=== PATIENT | female | born 1960 | race Caucasian/White ===

== ENCOUNTER 2018-04-03 15:31 | Emergency (ER) | payer MEDICAID, OTHER ==
[~2018-04-03] VITALS: Ht 167.6 cm; Wt 50.0 kg
[~2018-04-03 15:31] MED LIST: ALBU17AE26 IH; CYCL-1 PO; OMEP-84 PO; PRED20TA PO
[2018-04-03 15:45] VITALS: BP 101/69
[2018-04-03] MEDS ORDERED: ACET-2119 PO (16:11)
== END 2018-04-03 17:09 | disposition home or self-care (01) ==
LOC: ER 15:31
DX: M76.62 Achilles tendinitis, left leg (principal); M84.375A Stress fracture, left foot, initial encounter for fracture; J44.9 Chronic obstructive pulmonary disease, unspecified; F41.9 Anxiety disorder, unspecified; F32.9 Major depressive disorder, single episode, unspecified; Z59.0 Homelessness; Z56.0 Unemployment, unspecified; Z88.0 Allergy status to penicillin; Z88.6 Allergy status to analgesic agent; X58.XXXA Exposure to other specified factors, initial encounter; Y93.89 Activity, other specified; Y92.89 Other specified places as the place of occurrence of the external cause; Y99.8 Other external cause status
CPT/HCPCS: 73630; 99284

== ENCOUNTER 2023-05-12 13:47 | Emergency (ER) | payer MEDICAID, OTHER ==
[~2023-05-12] VITALS: Ht 167.6 cm; Wt 50.0 kg
[2023-05-12 14:35] VITALS: TEMP 98.8
[2023-05-12 15:14] LABS: BASOPHILS # (AUTO) 0.1 X10'3 (0-0.2); BASOPHILS % (AUTO) 0.6 % (0-1); EOSINOPHILS # (AUTO) 0.1 X10'3 (0-0.9); EOSINOPHILS % (AUTO) 0.3 % (0-6); HEMATOCRIT 42.7 % (35.0-45.0); HEMOGLOBIN 14.3 g/dl (12.0-16.0); LYMPHOCYTES # (AUTO) 1.7 X10'3 (1.1-4.8); LYMPHOCYTES % (AUTO) 10.9 % (21-51); MEAN CORPUSCULAR HEMOGLOBIN 34.3 PG (27.0-31.0); MEAN CORPUSCULAR HGB CONC 33.5 g/dL (33.0-36.5); MEAN CORPUSCULAR VOLUME 102.2 FL (78-98); MEAN PLATELET VOLUME 7.8 FL (7.4-10.4); MONOCYTES # (AUTO) 0.7 X10'3 (0-0.9); MONOCYTES % (AUTO) 4.2 % (2-12); NEUTROPHILS # (AUTO) 13.1 X10'3 (1.8-7.7); PLATELET COUNT 353 X10'3 (140-440); RED BLOOD COUNT 4.18 X10'6 (4.20-5.60); RED CELL DISTRIBUTION WIDTH 15.2 % (11.5-14.5); WHITE BLOOD COUNT 15.6 X10'3 (4.5-11.0)
[2023-05-12 15:28] LABS: ALANINE AMINOTRANSFERASE 28 U/L (12-78); ALBUMIN 3.5 G/DL (3.4-5.0); ALBUMIN/GLOBULIN RATIO 0.9 (1.1-1.5); ALKALINE PHOSPHATASE 116 IU/L (46-116); ANION GAP 10 (8-16); ASPARTATE AMINO TRANSFERASE 19 U/L (10-37); BILIRUBIN,TOTAL 0.2 MG/DL (0.1-1.0); BLOOD UREA NITROGEN 8 MG/DL (7-18); BUN/CREATININE RATIO 12.9 (10.0-20.0); CALCIUM 9.2 MG/DL (8.5-10.1); CHLORIDE 100 MMOL/L (99-107); CREATININE 0.62 MG/DL (0.40-0.90); GLUCOSE 102 MG/DL (70-104); POTASSIUM 4.7 MMOL/L (3.5-5.1); SODIUM 137 MMOL/L (135-145); TOTAL CARBON DIOXIDE 27.5 MMOL/L (24-32); TOTAL PROTEIN 7.2 G/DL (6.4-8.2); eCRCL 75 ML/MIN; eGFR > 90 ML/MIN
[2023-05-12 15:36] LABS: PRO BRAIN NATRIURETIC PEPTIDE 86 PG/ML (0-125)
[2023-05-12] MEDS ORDERED: oxyCODONE/APAP 5-325mg tablet PO ONE (15:40)
[2023-05-12] MEDS ORDERED: CYCL-1 PO (16:14)
[2023-05-12 16:44] VITALS: BP 127/81; PULSE 94; RESP 19; O2SAT 97
== END 2023-05-12 16:46 | disposition home or self-care (01) ==
LOC: ER 13:48
DX: R07.9 Chest pain, unspecified (principal); R05.9 Cough, unspecified; F31.9 Bipolar disorder, unspecified; J44.9 Chronic obstructive pulmonary disease, unspecified; Z88.0 Allergy status to penicillin; Z88.6 Allergy status to analgesic agent
CPT/HCPCS: 36415; 71045; 80053; 83880; 84484; 85025; 93005; 99285

== ENCOUNTER 2023-06-01 11:47 | Inpatient (IN) | payer MEDICAID ==
[~2023-06-01] VITALS: Ht 170.2 cm; Wt 40.1 kg
[2023-06-01] MEDS ORDERED: LORazepam 1 MG tablet PO ONE (12:30)
[2023-06-01 13:34] LABS: ALANINE AMINOTRANSFERASE 52 U/L (12-78); ALBUMIN 3.4 G/DL (3.4-5.0); ALBUMIN/GLOBULIN RATIO 0.8 (1.1-1.5); ALKALINE PHOSPHATASE 215 IU/L (46-116); ANION GAP 10 (8-16); ASPARTATE AMINO TRANSFERASE 26 U/L (10-37); BILIRUBIN,TOTAL 1.1 MG/DL (0.1-1.0); BLOOD UREA NITROGEN 10 MG/DL (7-18); CALCIUM 9.1 MG/DL (8.5-10.1); CHLORIDE 96 MMOL/L (99-107); CREATININE 0.83 MG/DL (0.40-0.90); GLUCOSE 202 MG/DL (70-104); SODIUM 133 MMOL/L (135-145); TOTAL CARBON DIOXIDE 27.1 MMOL/L (24-32); TOTAL PROTEIN 7.8 G/DL (6.4-8.2); eCRCL 43 ML/MIN; eGFR 70 ML/MIN
[2023-06-01 13:43] LABS: PRO BRAIN NATRIURETIC PEPTIDE 315 PG/ML (0-125)
[2023-06-01 14:04] LABS: BASOPHILS # (AUTO) 0.1 X10'3 (0-0.2); BASOPHILS % (AUTO) 0.2 % (0-1); EOSINOPHILS % (AUTO) 0 % (0-6); HEMATOCRIT 44.6 % (35.0-45.0); HEMOGLOBIN 14.6 g/dl (12.0-16.0); LYMPHOCYTES # (AUTO) 0.4 X10'3 (1.1-4.8); LYMPHOCYTES % (AUTO) 1.5 % (21-51); MEAN CORPUSCULAR HEMOGLOBIN 34.9 PG (27.0-31.0); MEAN CORPUSCULAR HGB CONC 32.8 g/dL (33.0-36.5); MEAN CORPUSCULAR VOLUME 106.4 FL (78-98); MEAN PLATELET VOLUME 8.3 FL (7.4-10.4); MONOCYTES # (AUTO) 1.1 X10'3 (0-0.9); MONOCYTES % (AUTO) 4.2 % (2-12); NEUTROPHILS # (AUTO) 24.8 X10'3 (1.8-7.7); NEUTROPHILS % (AUTO) 94.1 % (42-75); PLATELET COUNT 304 X10'3 (140-440); RED BLOOD COUNT 4.19 X10'6 (4.20-5.60)
[2023-06-01 14:08] LABS: WHITE BLOOD COUNT 26.4 X10'3 (4.5-11.0)
[2023-06-01] MEDS ORDERED: HYDROcodone/acetaminophen 5mg/325mg tablet PO ONE (14:25)
[2023-06-01 14:51] LABS: TOTAL CELLS COUNTED 100
[2023-06-01 14:52] LABS: GIANT PLATELET FEW; PLATELET ESTIMATE NORMAL
[2023-06-01] MEDS ORDERED: potassium Cl 40MEQ/1/2NS 520ml 520 ML IV PRN (16:00)
[2023-06-01] MEDS ORDERED: magnesium Cl slow-release 64mg tablet PO PRN (16:00)
[2023-06-01] MEDS ORDERED: magnesium 2GM in 50ml NS 50 ML IV PRN (16:00)
[2023-06-01] MEDS ORDERED: magnesium 4gm in 100ml NS 100 ML IV PRN (16:00)
[2023-06-01] MEDS ORDERED: mag hydrox/Alum hydrox/simeth 30ml oral suspension PO PRN (16:00)
[2023-06-01] MEDS ORDERED: magnesium hydroxide 30ml (MOM) UD suspension PO PRN (16:00)
[2023-06-01] MEDS ORDERED: potassium Cl 20 mEq SR tablet PO PRN (16:00)
[2023-06-01] MEDS ORDERED: acetaminophen 325mg tablet PO PRN (16:00)
[2023-06-01] MEDS ORDERED: morphine 2 MG/ML inj. syringe IV PRN (16:00)
[2023-06-01] MEDS ORDERED: ondansetron/PF 4mg/2ml inj IV PRN (16:00)
[2023-06-01] MEDS ORDERED: CefTRIAXone/D5W-Rocephin 1gm 50 ML IV SCH (16:00)
[2023-06-01] MEDS ORDERED: heparin 25,000 UNIT/250ml bag 250 ML IV PRN (17:10)
[2023-06-01] MEDS ORDERED: heparin 10,000 units/1 ML INJ IV ONE ×3 (17:10→18:50)
[2023-06-01] MEDS ORDERED: metoprolol tartrate 1mg/ml inj IV ONE (17:10)
[2023-06-01 18:03] LABS: CHOL/HDL RATIO 1.7 (0.00-4.99); CHOLESTEROL 170 MG/DL (0-200); HDL CHOLESTEROL 101 MG/DL (35-60); LDL CHOLESTEROL 56 MG/DL (50-100); MAGNESIUM 1.7 MG/DL (1.5-2.4); POTASSIUM 4.9 MMOL/L (3.5-5.1); TRIGLYCERIDES 51 MG/DL (20-135)
[2023-06-01] MEDS ORDERED: aspirin 325mg tablet PO ONE (18:05)
[2023-06-01] MEDS: nicotine 21mg patch - 24 hr TD SCH (18:20)
[2023-06-01] MEDS ORDERED: LORazepam 2 mg/ml vial IV ONE (18:25)
[2023-06-01 18:42] LABS: APTT 27 SECONDS (22-32); INR 1.1 INR; PROTHROMBIN TIME 11.4 SECONDS (9.0-12.0)
[2023-06-01] MEDS: HYDROcodone/acetaminophen 10/325mg tab PO PRN (18:51)
[2023-06-01] MEDS: heparin 25,000 UNIT/250ml bag 250 ML IV PRN (18:59)
[2023-06-01 19:36] LABS: BASOPHILS # (AUTO) 0.1 X10'3 (0-0.2); BASOPHILS % (AUTO) 0.2 % (0-1); EOSINOPHILS % (AUTO) 0 % (0-6); HEMATOCRIT 43.4 % (35.0-45.0); HEMOGLOBIN 14.6 g/dl (12.0-16.0); LYMPHOCYTES # (AUTO) 0.6 X10'3 (1.1-4.8); LYMPHOCYTES % (AUTO) 1.8 % (21-51); MEAN CORPUSCULAR HEMOGLOBIN 35.6 PG (27.0-31.0); MEAN CORPUSCULAR HGB CONC 33.7 g/dL (33.0-36.5); MEAN CORPUSCULAR VOLUME 105.4 FL (78-98); MEAN PLATELET VOLUME 8.1 FL (7.4-10.4); MONOCYTES # (AUTO) 1.2 X10'3 (0-0.9); MONOCYTES % (AUTO) 3.7 % (2-12); NEUTROPHILS # (AUTO) 30.8 X10'3 (1.8-7.7); NEUTROPHILS % (AUTO) 94.3 % (42-75); PLATELET COUNT 268 X10'3 (140-440); RED BLOOD COUNT 4.12 X10'6 (4.20-5.60); RED CELL DISTRIBUTION WIDTH 15.6 % (11.5-14.5)
[2023-06-01 19:43] LABS: WHITE BLOOD COUNT 32.7 X10'3 (4.5-11.0)
[2023-06-01] MEDS: K and/or MAG REPLACEMENT MC SCH (20:00)
[2023-06-01] MEDS: carVEDilol 3.125mg tablet PO SCH (20:00)
[2023-06-01] MEDS: docusate sod 100mg capsule PO SCH (20:00)
[2023-06-01] MEDS ORDERED: enoxaparin 40mg/0.4ml syringe SQ SCH (20:00)
[2023-06-02] VITALS (13 sets, daily range): BP systolic 84–111; BP diastolic 50–68; PULSE 51–101; RESP 12–21; TEMP 97.1–98; O2SAT 94–100
[2023-06-02] MEDS: HYDROcodone/acetaminophen 10/325mg tab PO PRN ×5 (00:38→21:56)
[2023-06-02] MEDS: hydrOXYzine 25 MG tablet PO PRN ×4 (00:38→19:51)
[2023-06-02] MEDS ORDERED: carVEDilol 3.125mg tablet PO ONE (00:55)
[2023-06-02] MEDS: normal saline 1000ml 1,000 ML IV SCH ×3 (01:23→21:00)
[2023-06-02] MEDS: nitroGLYCERIN 0.4mg SUBLingual tab SL PRN ×3 (01:23→02:20)
[2023-06-02 01:46] LABS: NEUTROPHILS # (AUTO) 19.7 X10'3 (1.8-7.7); RED BLOOD COUNT 3.94 X10'6 (4.20-5.60); RED CELL DISTRIBUTION WIDTH 15.8 % (11.5-14.5)
[2023-06-02 01:48] LABS: BASOPHILS % (AUTO) 0.2 % (0-1); EOSINOPHILS % (AUTO) 0 % (0-6); HEMATOCRIT 42.3 % (35.0-45.0); LYMPHOCYTES # (AUTO) 0.6 X10'3 (1.1-4.8); LYMPHOCYTES % (AUTO) 2.7 % (21-51); MEAN CORPUSCULAR HEMOGLOBIN 35.6 PG (27.0-31.0); MEAN CORPUSCULAR HGB CONC 33.2 g/dL (33.0-36.5); MEAN CORPUSCULAR VOLUME 107.2 FL (78-98); MONOCYTES # (AUTO) 1.1 X10'3 (0-0.9); MONOCYTES % (AUTO) 5.2 % (2-12); NEUTROPHILS % (AUTO) 91.9 % (42-75); PLATELET COUNT 156 X10'3 (140-440); WHITE BLOOD COUNT 21.4 X10'3 (4.5-11.0)
[2023-06-02 02:02] LABS: ALANINE AMINOTRANSFERASE 38 U/L (12-78); ALBUMIN/GLOBULIN RATIO 0.7 (1.1-1.5); ALKALINE PHOSPHATASE 168 IU/L (46-116); ANION GAP 6 (8-16); ASPARTATE AMINO TRANSFERASE 34 U/L (10-37); BLOOD UREA NITROGEN 22 MG/DL (7-18); BUN/CREATININE RATIO 21.6 (10.0-20.0); CHLORIDE 97 MMOL/L (99-107); CREATININE 1.02 MG/DL (0.40-0.90); GLUCOSE 124 MG/DL (70-104); MAGNESIUM 1.9 MG/DL (1.5-2.4); POTASSIUM 4.4 MMOL/L (3.5-5.1); SODIUM 131 MMOL/L (135-145); TOTAL CARBON DIOXIDE 27.9 MMOL/L (24-32); TOTAL PROTEIN 7.2 G/DL (6.4-8.2); eCRCL 37 ML/MIN; eGFR 55 ML/MIN
[2023-06-02] MEDS: heparin 10,000 units/1 ML INJ IV PRN ×2 (02:22→16:36)
[2023-06-02] MEDS: pantoprazole 40mg Tablet.DR PO SCH (06:56)
[2023-06-02] MEDS: K and/or MAG REPLACEMENT MC SCH ×2 (08:00→20:00)
[2023-06-02] MEDS: nicotine 21mg patch - 24 hr TD SCH (08:00)
[2023-06-02] MEDS ORDERED: atorvastatin 20mg tablet PO SCH (08:00)
[2023-06-02] MEDS: atorvastatin 20mg tablet PO SCH (08:07)
[2023-06-02] MEDS: aspirin 81mg, enteric-coated 1 TAB TABLET.DR PO SCH (08:08)
[2023-06-02] MEDS: docusate sod 100mg capsule PO SCH ×2 (08:08→20:00)
[2023-06-02] MEDS ORDERED: normal saline 1000ml 1,000 ML IV ONE (09:45)
[2023-06-02] MEDS: carVEDilol 3.125mg tablet PO SCH ×2 (10:18→20:00)
[2023-06-02 13:27] LABS: BILIRUBIN,URINE NEGATIVE (Neg); CLARITY,URINE SLIGHTLY CLOUDY (Clear); COLOR,URINE AMBER (Yellow); GLUCOSE, URINE NEGATIVE (Neg); KETONES,URINE NEGATIVE (Neg); LEUKOCYTE ESTERASE ,URINE NEGATIVE (Neg); OCCULT BLOOD,URINE NEGATIVE (Neg); PH,URINE 5.5 (4.8-8.0); PROTEIN,URINE TRACE mg/dl (Neg); UROBILINOGEN,URINE 0.2 E.U/dL (0.2-1.0)
[2023-06-02 13:31] LABS: UA COLLECTION TYPE CLN CATCH MIDSTREAM
[2023-06-02 13:35] LABS: URINE AMPHETAMINE SCREEN NEGATIVE (Neg); URINE BARBITUATE SCREEN NEGATIVE (Neg); URINE BENZODIAZEPINES SCREEN NEGATIVE (Neg); URINE CANNABINOID SCREEN NEGATIVE (Neg); URINE COCAINE SCREEN NEGATIVE (Neg); URINE METHADONE SCREEN NEGATIVE (Neg); URINE OPIATE SCREEN POSITIVE (Neg); URINE PHENCYCLIDINE SCREEN NEGATIVE (Neg)
[2023-06-02 13:37] LABS: NITRITES, URINE NEGATIVE (Neg)
[2023-06-02 14:24] LABS: HYALINE CASTS >30 /LPF (NEGATIVE); MUCUS STRANDS MANY /LPF (Neg); SQUAMOUS EPITHELIAL CELL,UR MANY /LPF (FEW)
[2023-06-02 14:25] LABS: BACTERIA,URINE FEW /HPF (Neg); TRANSITIONAL EPI CELLS,URINE FEW /HPF
[2023-06-02] MEDS ORDERED: CLON-527 PO (16:32)
[2023-06-02] MEDS: CefTRIAXone/D5W-Rocephin 1gm 50 ML IV SCH (17:08)
[2023-06-02] MEDS ORDERED: regadenoson 0.4mg/5ml syringe IV PRN (18:00)
[2023-06-02] MEDS ORDERED: aminophylline 250mg/10ml inj. IV PRN (18:00)
[2023-06-02] MEDS ORDERED: nitroGLYCERIN 0.4mg SUBLingual tab SL PRN (18:00)
[2023-06-02] MEDS: lactose-reduced food (Ensure Enlive) - 237ml bottle PO SCH (18:00)
[2023-06-02] MEDS ORDERED: metoprolol tartrate 1mg/ml inj IV PRN (18:00)
[2023-06-03] VITALS (16 sets, daily range): BP systolic 83–139; BP diastolic 51–77; PULSE 11–113; RESP 14–28; TEMP 97.2–98; O2SAT 92–100
[2023-06-03] MEDS: normal saline 1000ml 1,000 ML IV SCH ×2 (00:28→10:31)
[2023-06-03 01:16] LABS: BILIRUBIN,URINE NEGATIVE (Neg); CLARITY,URINE CLEAR (Clear); GLUCOSE, URINE NEGATIVE (Neg); KETONES,URINE TRACE mg/dl (Neg); LEUKOCYTE ESTERASE ,URINE NEGATIVE (Neg); NITRITES, URINE NEGATIVE (Neg); OCCULT BLOOD,URINE TRACE-INTACT (Neg); PROTEIN,URINE TRACE mg/dl (Neg); UROBILINOGEN,URINE 0.2 E.U/dL (0.2-1.0)
[2023-06-03 01:18] LABS: COLOR,URINE DARK YELLOW (Yellow)
[2023-06-03 01:25] LABS: UA COLLECTION TYPE OTHER
[2023-06-03 01:30] LABS: MUCUS STRANDS MANY /LPF (Neg); SQUAMOUS EPITHELIAL CELL,UR MANY /LPF (FEW); TRANSITIONAL EPI CELLS,URINE FEW /HPF; WBC,URINE 0-4 /HPF (0-4)
[2023-06-03 01:32] LABS: BACTERIA,URINE FEW /HPF (Neg)
[2023-06-03 01:39] LABS: FINE GRANULAR CAST 0-3 /LPF (NEGATIVE); HYALINE CASTS 0-3 /LPF (NEGATIVE)
[2023-06-03] MEDS: HYDROcodone/acetaminophen 10/325mg tab PO PRN ×2 (02:04→05:55)
[2023-06-03] MEDS: hydrOXYzine 25 MG tablet PO PRN ×2 (02:04→07:45)
[2023-06-03] MEDS: heparin 25,000 UNIT/250ml bag 250 ML IV PRN (05:47)
[2023-06-03] MEDS: pantoprazole 40mg Tablet.DR PO SCH (07:44)
[2023-06-03 07:52] LABS: BASOPHILS % (AUTO) 0.2 % (0-1); EOSINOPHILS # (AUTO) 0.1 X10'3 (0-0.9); EOSINOPHILS % (AUTO) 0.8 % (0-6); HEMATOCRIT 37.9 % (35.0-45.0); HEMOGLOBIN 12.5 g/dl (12.0-16.0); LYMPHOCYTES # (AUTO) 0.6 X10'3 (1.1-4.8); LYMPHOCYTES % (AUTO) 6.1 % (21-51); MEAN CORPUSCULAR HEMOGLOBIN 35.6 PG (27.0-31.0); MEAN CORPUSCULAR HGB CONC 33.1 g/dL (33.0-36.5); MEAN CORPUSCULAR VOLUME 107.8 FL (78-98); MEAN PLATELET VOLUME 8.8 FL (7.4-10.4); MONOCYTES # (AUTO) 0.5 X10'3 (0-0.9); NEUTROPHILS # (AUTO) 8.3 X10'3 (1.8-7.7); NEUTROPHILS % (AUTO) 87.9 % (42-75); PLATELET COUNT 161 X10'3 (140-440); RED BLOOD COUNT 3.51 X10'6 (4.20-5.60); RED CELL DISTRIBUTION WIDTH 15.5 % (11.5-14.5); WHITE BLOOD COUNT 9.4 X10'3 (4.5-11.0)
[2023-06-03] MEDS: K and/or MAG REPLACEMENT MC SCH ×2 (08:00→20:00)
[2023-06-03] MEDS: lactose-reduced food (Ensure Enlive) - 237ml bottle PO SCH ×3 (08:00→18:00)
[2023-06-03] MEDS: nicotine 21mg patch - 24 hr TD SCH (08:00)
[2023-06-03 08:14] LABS: ALANINE AMINOTRANSFERASE 33 U/L (12-78); ALBUMIN 2.5 G/DL (3.4-5.0); ALBUMIN/GLOBULIN RATIO 0.6 (1.1-1.5); ALKALINE PHOSPHATASE 126 IU/L (46-116); ANION GAP 6 (8-16); ASPARTATE AMINO TRANSFERASE 28 U/L (10-37); BILIRUBIN,TOTAL 0.5 MG/DL (0.1-1.0); BLOOD UREA NITROGEN 18 MG/DL (7-18); BUN/CREATININE RATIO 23.4 (10.0-20.0); CALCIUM 8.4 MG/DL (8.5-10.1); CHLORIDE 103 MMOL/L (99-107); CREATININE 0.77 MG/DL (0.40-0.90); GLUCOSE 78 MG/DL (70-104); MAGNESIUM 1.9 MG/DL (1.5-2.4); POTASSIUM 3.8 MMOL/L (3.5-5.1); SODIUM 135 MMOL/L (135-145); TOTAL CARBON DIOXIDE 25.8 MMOL/L (24-32); TOTAL PROTEIN 6.4 G/DL (6.4-8.2); eCRCL 49 ML/MIN; eGFR 76 ML/MIN
[2023-06-03] MEDS: heparin 10,000 units/1 ML INJ IV PRN (08:31)
[2023-06-03] MEDS: clonazePAM 1mg tablet PO PRN ×2 (10:27→20:22)
[2023-06-03] MEDS: hydrocortisone 1% cream 28gm TP SCH ×2 (11:00→20:22)
[2023-06-03] MEDS: carVEDilol 3.125mg tablet PO SCH ×2 (13:00→20:00)
[2023-06-03] MEDS: docusate sod 100mg capsule PO SCH ×2 (15:26→20:00)
[2023-06-03] MEDS: aspirin 81mg, enteric-coated 1 TAB TABLET.DR PO SCH (15:27)
[2023-06-03] MEDS: atorvastatin 20mg tablet PO SCH (15:27)
[2023-06-03] MEDS: HYDROcodone/acetaminophen 5mg/325mg tablet PO PRN (17:17)
[2023-06-03] MEDS: CefTRIAXone/D5W-Rocephin 1gm 50 ML IV SCH (17:17)
[2023-06-03] MEDS ORDERED: enoxaparin 40mg/0.4ml syringe SUBCUT SCH (20:00)
[2023-06-04] VITALS (22 sets, daily range): BP systolic 97–114; BP diastolic 62–86; PULSE 84–107; RESP 16–28; TEMP 97.4–98.5; O2SAT 92–99
[2023-06-04] MEDS: normal saline 1000ml 1,000 ML IV SCH (01:19)
[2023-06-04] MEDS: HYDROcodone/acetaminophen 10/325mg tab PO PRN (05:53)
[2023-06-04 07:03] LABS: ALANINE AMINOTRANSFERASE 27 U/L (12-78); ALBUMIN/GLOBULIN RATIO 0.6 (1.1-1.5); ALKALINE PHOSPHATASE 98 IU/L (46-116); ANION GAP 10 (8-16); ASPARTATE AMINO TRANSFERASE 26 U/L (10-37); BILIRUBIN,TOTAL 0.5 MG/DL (0.1-1.0); BLOOD UREA NITROGEN 10 MG/DL (7-18); BUN/CREATININE RATIO 16.9 (10.0-20.0); CALCIUM 7.9 MG/DL (8.5-10.1); CHLORIDE 104 MMOL/L (99-107); CREATININE 0.59 MG/DL (0.40-0.90); GLUCOSE 92 MG/DL (70-104); MAGNESIUM 1.5 MG/DL (1.5-2.4); POTASSIUM 3.3 MMOL/L (3.5-5.1); SODIUM 137 MMOL/L (135-145); TOTAL CARBON DIOXIDE 23.2 MMOL/L (24-32); TOTAL PROTEIN 5.5 G/DL (6.4-8.2); eCRCL 63 ML/MIN; eGFR > 90 ML/MIN
[2023-06-04 07:09] LABS: BASOPHILS % (AUTO) 0.3 % (0-1); EOSINOPHILS # (AUTO) 0.1 X10'3 (0-0.9); EOSINOPHILS % (AUTO) 0.9 % (0-6); HEMATOCRIT 32.1 % (35.0-45.0); HEMOGLOBIN 10.9 g/dl (12.0-16.0); LYMPHOCYTES # (AUTO) 0.6 X10'3 (1.1-4.8); LYMPHOCYTES % (AUTO) 10.2 % (21-51); MEAN CORPUSCULAR HEMOGLOBIN 36.3 PG (27.0-31.0); MEAN CORPUSCULAR HGB CONC 34.1 g/dL (33.0-36.5); MEAN CORPUSCULAR VOLUME 106.6 FL (78-98); MEAN PLATELET VOLUME 8.3 FL (7.4-10.4); MONOCYTES # (AUTO) 0.7 X10'3 (0-0.9); MONOCYTES % (AUTO) 11.8 % (2-12); NEUTROPHILS # (AUTO) 4.4 X10'3 (1.8-7.7); NEUTROPHILS % (AUTO) 76.8 % (42-75); PLATELET COUNT 150 X10'3 (140-440); RED BLOOD COUNT 3.01 X10'6 (4.20-5.60); RED CELL DISTRIBUTION WIDTH 15.6 % (11.5-14.5); WHITE BLOOD COUNT 5.7 X10'3 (4.5-11.0)
[2023-06-04] MEDS: pantoprazole 40mg Tablet.DR PO SCH (07:47)
[2023-06-04] MEDS: clonazePAM 1mg tablet PO PRN ×2 (07:47→21:02)
[2023-06-04] MEDS: carVEDilol 3.125mg tablet PO SCH ×2 (07:48→20:00)
[2023-06-04] MEDS: potassium Cl 20 mEq SR tablet PO PRN ×2 (07:49→13:43)
[2023-06-04] MEDS: hydrocortisone 1% cream 28gm TP SCH ×2 (07:50→20:45)
[2023-06-04] MEDS: K and/or MAG REPLACEMENT MC SCH ×2 (07:54→20:00)
[2023-06-04] MEDS: lactose-reduced food (Ensure Enlive) - 237ml bottle PO SCH ×3 (08:00→18:00)
[2023-06-04] MEDS: nicotine 21mg patch - 24 hr TD SCH (08:00)
[2023-06-04] MEDS ORDERED: midazolam 1 mg/ML 2ml injection ONE (09:35)
[2023-06-04] MEDS ORDERED: LIDOcaine 1% (10mg/ml) 2ml vial ONE (09:35)
[2023-06-04] MEDS ORDERED: fentaNYL/PF 50MCG/1 ML 2ML syringe ONE (09:35)
[2023-06-04] MEDS ORDERED: verapamil 2.5 mg/ml inj IV ONE (09:35)
[2023-06-04] MEDS ORDERED: nitroGLYCERIN 500mcg/5mL D5W 5 ML IV ONE (09:36)
[2023-06-04] MEDS ORDERED: heparin 1,000unit/ml 10ml vial 10 ML ONE (09:36)
[2023-06-04] MEDS ORDERED: iohexol 350MG/ML 100ml bottle IV ONE (09:36)
[2023-06-04] MEDS ORDERED: iohexol 350 MG/ML 50ML vial IV ONE (09:38)
[2023-06-04] MEDS ORDERED: LIDOcaine 1% (10mg/ml)w/preservative inj. 20ml MDV ONE (10:11)
[2023-06-04] MEDS ORDERED: normal saline 1000ml 1,000 ML IV SCH (12:00)
[2023-06-04] MEDS: losartan 25mg tablet PO SCH (12:32)
[2023-06-04] MEDS: atorvastatin 20mg tablet PO SCH (12:33)
[2023-06-04] MEDS: aspirin 81mg, enteric-coated 1 TAB TABLET.DR PO SCH (12:33)
[2023-06-04] MEDS: docusate sod 100mg capsule PO SCH ×2 (12:37→20:44)
[2023-06-04] MEDS ORDERED: spironolactone 25 MG tablet PO SCH (13:00)
[2023-06-04] MEDS: HYDROcodone/acetaminophen 5mg/325mg tablet PO PRN ×2 (13:42→17:25)
[2023-06-04] MEDS ORDERED: methylPREDNISolone sod succ 125mg/2ml vial IV ONE (14:35)
[2023-06-04] MEDS ORDERED: ipratropium/albuterol 3ml nebule NEB PRN (14:55)
[2023-06-04] MEDS: ipratropium/albuterol 3ml nebule NEB SCH ×3 (15:00→22:56)
[2023-06-04] MEDS: CefTRIAXone/D5W-Rocephin 1gm 50 ML IV SCH (17:24)
[2023-06-05] VITALS (8 sets, daily range): BP systolic 101–113; BP diastolic 76; PULSE 75–89; RESP 17–22; TEMP 97.1; O2SAT 97–100
[2023-06-05] MEDS: HYDROcodone/acetaminophen 5mg/325mg tablet PO PRN ×2 (01:43→08:42)
[2023-06-05] MEDS: ipratropium/albuterol 3ml nebule NEB SCH ×2 (03:21→07:42)
[2023-06-05 06:28] LABS: BASOPHILS % (AUTO) 0.2 % (0-1); EOSINOPHILS % (AUTO) 0 % (0-6); HEMATOCRIT 33.6 % (35.0-45.0); HEMOGLOBIN 11.4 g/dl (12.0-16.0); LYMPHOCYTES # (AUTO) 0.3 X10'3 (1.1-4.8); LYMPHOCYTES % (AUTO) 6.2 % (21-51); MEAN CORPUSCULAR HEMOGLOBIN 36.1 PG (27.0-31.0); MEAN CORPUSCULAR HGB CONC 33.8 g/dL (33.0-36.5); MEAN CORPUSCULAR VOLUME 106.7 FL (78-98); MEAN PLATELET VOLUME 8.3 FL (7.4-10.4); MONOCYTES # (AUTO) 0.2 X10'3 (0-0.9); MONOCYTES % (AUTO) 4.7 % (2-12); NEUTROPHILS # (AUTO) 3.9 X10'3 (1.8-7.7); NEUTROPHILS % (AUTO) 88.9 % (42-75); PLATELET COUNT 193 X10'3 (140-440); RED BLOOD COUNT 3.15 X10'6 (4.20-5.60); RED CELL DISTRIBUTION WIDTH 15.7 % (11.5-14.5); WHITE BLOOD COUNT 4.4 X10'3 (4.5-11.0)
[2023-06-05 07:01] LABS: ALANINE AMINOTRANSFERASE 34 U/L (12-78); ALBUMIN 2.1 G/DL (3.4-5.0); ALBUMIN/GLOBULIN RATIO 0.6 (1.1-1.5); ALKALINE PHOSPHATASE 95 IU/L (46-116); ANION GAP 6 (8-16); ASPARTATE AMINO TRANSFERASE 25 U/L (10-37); BILIRUBIN,TOTAL 0.2 MG/DL (0.1-1.0); BLOOD UREA NITROGEN 9 MG/DL (7-18); BUN/CREATININE RATIO 14.1 (10.0-20.0); CALCIUM 8.3 MG/DL (8.5-10.1); CHLORIDE 105 MMOL/L (99-107); CREATININE 0.64 MG/DL (0.40-0.90); GLUCOSE 155 MG/DL (70-104); MAGNESIUM 1.8 MG/DL (1.5-2.4); POTASSIUM 4.2 MMOL/L (3.5-5.1); PRO BRAIN NATRIURETIC PEPTIDE 10339 PG/ML (0-125); SODIUM 136 MMOL/L (135-145); TOTAL CARBON DIOXIDE 25.4 MMOL/L (24-32); TOTAL PROTEIN 5.8 G/DL (6.4-8.2); eCRCL 58 ML/MIN; eGFR > 90 ML/MIN
[2023-06-05] MEDS: nicotine 21mg patch - 24 hr TD SCH (08:00)
[2023-06-05] MEDS: docusate sod 100mg capsule PO SCH (08:00)
[2023-06-05] MEDS: K and/or MAG REPLACEMENT MC SCH (08:00)
[2023-06-05] MEDS: hydrocortisone 1% cream 28gm TP SCH (08:35)
[2023-06-05] MEDS: pantoprazole 40mg Tablet.DR PO SCH (08:35)
[2023-06-05] MEDS: losartan 25mg tablet PO SCH (08:35)
[2023-06-05] MEDS: carVEDilol 3.125mg tablet PO SCH (08:36)
[2023-06-05] MEDS: atorvastatin 20mg tablet PO SCH (08:36)
[2023-06-05] MEDS: aspirin 81mg, enteric-coated 1 TAB TABLET.DR PO SCH (08:36)
[2023-06-05] MEDS: lactose-reduced food (Ensure Enlive) - 237ml bottle PO SCH (08:37)
[2023-06-05] MEDS: clonazePAM 1mg tablet PO PRN (08:41)
[2023-06-07] MEDS ORDERED: FURO-150 PO (10:44)
[2023-06-07] MEDS ORDERED: IPRA3AMP9 NEB (10:44)
[2023-06-07] MEDS ORDERED: POTA-206 PO (10:44)
[2023-06-07] MEDS ORDERED: PANT40SU2 PO (10:52)
[2023-06-07] MEDS ORDERED: PRED20TA PO (10:52)
[2023-06-07] MEDS ORDERED: CARV3.12 PO (13:24)
[2023-06-07] MEDS ORDERED: LISI2.5T14 PO (13:24)
== END 2023-06-05 10:40 | disposition left against medical advice (07) | DRG 190 ==
LOC: ER 11:48 → ED HOLD 16:07 → PCU 3S 23:55
PROVIDERS: ADMIT Internal Medicine; ATTEND Internal Medicine
PROC: 4A02XM4 Measurement of Cardiac Total Activity, External Approach (ICD-10-PCS; 2023-06-03)
PROC: 3E073KZ Introduction of Other Diagnostic Substance into Coronary Artery, Percutaneous Approach (ICD-10-PCS; 2023-06-03)
PROC: 4A023N7 Measurement of Cardiac Sampling and Pressure, Left Heart, Percutaneous Approach (ICD-10-PCS; principal; 2023-06-04)
PROC: B2111ZZ Fluoroscopy of Multiple Coronary Arteries using Low Osmolar Contrast (ICD-10-PCS; 2023-06-04)
PROC: B2151ZZ Fluoroscopy of Left Heart using Low Osmolar Contrast (ICD-10-PCS; 2023-06-04)
DX: I21.4 Non-ST elevation (NSTEMI) myocardial infarction (principal); E87.1 Hypo-osmolality and hyponatremia; E86.0 Dehydration; J44.1 Chronic obstructive pulmonary disease with (acute) exacerbation; F32.A Depression, unspecified; F41.9 Anxiety disorder, unspecified; G89.29 Other chronic pain; K21.9 Gastro-esophageal reflux disease without esophagitis; D72.829 Elevated white blood cell count, unspecified; I10 Essential (primary) hypertension; I20.0 Unstable angina; Z53.21 Procedure and treatment not carried out due to patient leaving prior to being seen by health care provider; M54.50 Low back pain, unspecified; G62.9 Polyneuropathy, unspecified; F17.200 Nicotine dependence, unspecified, uncomplicated; Z90.710 Acquired absence of both cervix and uterus; Z90.49 Acquired absence of other specified parts of digestive tract; Z79.899 Other long term (current) drug therapy; Z59.00 Homelessness unspecified
CPT/HCPCS: 36415; 71045; 71250; 76937; 78452; 80053; 80061; 80305; 81001; 82103; 83036; 83605; 83735; 83880; 84132; 84484; 85007; 85025; 85610; 85730; 87040; 87081; 93005; 93017; 93306; 93458; 93925; 94640; 94760; 99152; 99153; 99285; A4620; A6258; A9500; C1725; C1894; G0378; J0696; J1644; J1650; J2060; J2250; J2405; J2785; J2930; J3010; J3490; J7030; Q0177; Q9967

== ENCOUNTER 2023-06-10 23:14 | Emergency (ER) | payer MEDICAID ==
[~2023-06-10] VITALS: Ht 167.6 cm; Wt 112.0 kg
[~2023-06-10 23:14] MED LIST changes: -ALBU17AE26 IH; +CARV3.12 PO; +CLON-527 PO; -CYCL-1 PO; +FURO-150 PO; +IPRA3AMP9 NEB; +LISI2.5T14 PO; +PANT40SU2 PO; +POTA-206 PO
[2023-06-10 23:42] LABS: WHITE BLOOD COUNT 6.1 X10'3 (4.5-11.0)
[2023-06-10 23:47] VITALS: TEMP 98
[2023-06-10 23:47] LABS: BASOPHILS % (AUTO) 0.4 % (0-1); EOSINOPHILS % (AUTO) 0.2 % (0-6); HEMATOCRIT 45.4 % (35.0-45.0); HEMOGLOBIN 14.6 g/dl (12.0-16.0); LYMPHOCYTES # (AUTO) 0.6 X10'3 (1.1-4.8); LYMPHOCYTES % (AUTO) 9.4 % (21-51); MEAN CORPUSCULAR HEMOGLOBIN 34.9 PG (27.0-31.0); MEAN CORPUSCULAR HGB CONC 32.1 g/dL (33.0-36.5); MEAN CORPUSCULAR VOLUME 108.7 FL (78-98); MEAN PLATELET VOLUME 7.4 FL (7.4-10.4); MONOCYTES # (AUTO) 0.1 X10'3 (0-0.9); MONOCYTES % (AUTO) 1.1 % (2-12); NEUTROPHILS # (AUTO) 5.4 X10'3 (1.8-7.7); NEUTROPHILS % (AUTO) 88.9 % (42-75); PLATELET COUNT 542 X10'3 (140-440); RED BLOOD COUNT 4.18 X10'6 (4.20-5.60); RED CELL DISTRIBUTION WIDTH 15.8 % (11.5-14.5)
[2023-06-10 23:55] LABS: ALANINE AMINOTRANSFERASE 63 U/L (12-78); ALBUMIN 3.3 G/DL (3.4-5.0); ALBUMIN/GLOBULIN RATIO 0.7 (1.1-1.5); ALKALINE PHOSPHATASE 109 IU/L (46-116); ANION GAP 10 (8-16); ASPARTATE AMINO TRANSFERASE 37 U/L (10-37); BILIRUBIN,TOTAL 0.2 MG/DL (0.1-1.0); BLOOD UREA NITROGEN 6 MG/DL (7-18); BUN/CREATININE RATIO 7.3 (10.0-20.0); CALCIUM 8.9 MG/DL (8.5-10.1); CHLORIDE 104 MMOL/L (99-107); CREATININE 0.82 MG/DL (0.40-0.90); ETHANOL 246 MG/DL (<10); GLUCOSE 122 MG/DL (70-104); POTASSIUM 4.9 MMOL/L (3.5-5.1); SALICYLATE 1.7 MG/DL (4.0-20.0); SODIUM 141 MMOL/L (135-145); TOTAL CARBON DIOXIDE 26.6 MMOL/L (24-32); TOTAL PROTEIN 8.1 G/DL (6.4-8.2); eGFR 71 ML/MIN
[2023-06-11 00:12] LABS: ACETAMINOPHEN < 2.0 UG/ML (10-30)
[2023-06-11] MEDS: thiamine 100mg/ml 2ml inj. IM ONE ×2 (00:47→00:51)
[2023-06-11 02:41] LABS: URINE AMPHETAMINE SCREEN NEGATIVE (Neg); URINE BARBITUATE SCREEN NEGATIVE (Neg); URINE BENZODIAZEPINES SCREEN NEGATIVE (Neg); URINE CANNABINOID SCREEN NEGATIVE (Neg); URINE COCAINE SCREEN NEGATIVE (Neg); URINE METHADONE SCREEN NEGATIVE (Neg); URINE OPIATE SCREEN NEGATIVE (Neg); URINE PHENCYCLIDINE SCREEN NEGATIVE (Neg)
[2023-06-11 04:40] LABS: BILIRUBIN,URINE NEGATIVE (Neg); CLARITY,URINE CLEAR (Clear); COLOR,URINE YELLOW (Yellow); GLUCOSE, URINE NEGATIVE (Neg); KETONES,URINE NEGATIVE (Neg); LEUKOCYTE ESTERASE ,URINE NEGATIVE (Neg); NITRITES, URINE NEGATIVE (Neg); OCCULT BLOOD,URINE NEGATIVE (Neg); PROTEIN,URINE NEGATIVE (Neg); UROBILINOGEN,URINE 0.2 E.U/dL (0.2-1.0)
[2023-06-11 04:41] LABS: UA COLLECTION TYPE CLN CATCH MIDSTREAM
[2023-06-11 07:52] LABS: THYROID STIMULATING HORMONE 0.58 ulU/ml (0.34-4.50)
[2023-06-11 09:44] VITALS: BP 154/80; PULSE 84; RESP 18; O2SAT 94
[2023-06-15] MEDS ORDERED: iohexol 350MG/ML 100ml bottle IV ONE (08:00)
== END 2023-06-11 08:30 | disposition home or self-care (01) ==
LOC: ER 23:15
DX: R45.851 Suicidal ideations (principal); Z20.822 Contact with and (suspected) exposure to COVID-19; F10.129 Alcohol abuse with intoxication, unspecified; J44.9 Chronic obstructive pulmonary disease, unspecified; Z56.0 Unemployment, unspecified; Z59.00 Homelessness unspecified; Z88.0 Allergy status to penicillin; Z88.5 Allergy status to narcotic agent; Z79.899 Other long term (current) drug therapy; Z91.51 Personal history of suicidal behavior; Y90.8 Blood alcohol level of 240 mg/100 ml or more
CPT/HCPCS: 36415; 80053; 80305; 80320; 80329; 81003; 84443; 85025; 87811; 96372; 99285; J3411

== ENCOUNTER 2023-06-14 22:09 | Inpatient (IN) | payer MEDICAID ==
[~2023-06-14] VITALS: Ht 168.9 cm; Wt 47.9 kg
[~2023-06-14 22:09] MED LIST changes: -PRED20TA PO
[2023-06-14 22:42] LABS: BASOPHILS # (AUTO) 0.1 X10'3 (0-0.2); HEMATOCRIT 39.4 % (35.0-45.0); MEAN CORPUSCULAR VOLUME 104.8 FL (78-98); RED BLOOD COUNT 3.76 X10'6 (4.20-5.60)
[2023-06-14 22:43] LABS: BASOPHILS % (AUTO) 1.2 % (0-1); EOSINOPHILS % (AUTO) 0.3 % (0-6); LYMPHOCYTES # (AUTO) 2.1 X10'3 (1.1-4.8); LYMPHOCYTES % (AUTO) 18.8 % (21-51); MEAN CORPUSCULAR HEMOGLOBIN 34.5 PG (27.0-31.0); MEAN CORPUSCULAR HGB CONC 32.9 g/dL (33.0-36.5); MEAN PLATELET VOLUME 7.4 FL (7.4-10.4); MONOCYTES # (AUTO) 0.7 X10'3 (0-0.9); MONOCYTES % (AUTO) 6.5 % (2-12); NEUTROPHILS # (AUTO) 8.3 X10'3 (1.8-7.7); NEUTROPHILS % (AUTO) 73.2 % (42-75); PLATELET COUNT 587 X10'3 (140-440); RED CELL DISTRIBUTION WIDTH 15.5 % (11.5-14.5); WHITE BLOOD COUNT 11.4 X10'3 (4.5-11.0)
[2023-06-14 22:48] LABS: ALANINE AMINOTRANSFERASE 39 U/L (12-78); ALBUMIN 3.3 G/DL (3.4-5.0); ALBUMIN/GLOBULIN RATIO 0.8 (1.1-1.5); ALKALINE PHOSPHATASE 90 IU/L (46-116); ANION GAP 15 (8-16); ASPARTATE AMINO TRANSFERASE 29 U/L (10-37); BILIRUBIN,TOTAL 0.5 MG/DL (0.1-1.0); BLOOD UREA NITROGEN 17 MG/DL (7-18); BUN/CREATININE RATIO 20.2 (10.0-20.0); CALCIUM 8.8 MG/DL (8.5-10.1); CHLORIDE 94 MMOL/L (99-107); CREATININE 0.84 MG/DL (0.40-0.90); GLUCOSE 313 MG/DL (70-104); SODIUM 132 MMOL/L (135-145); TOTAL CARBON DIOXIDE 22.6 MMOL/L (24-32); TOTAL PROTEIN 7.3 G/DL (6.4-8.2); eGFR 69 ML/MIN
[2023-06-14 22:56] LABS: PRO BRAIN NATRIURETIC PEPTIDE 527 PG/ML (0-125)
[2023-06-15] VITALS (9 sets, daily range): BP systolic 97–111; BP diastolic 57–71; PULSE 63–81; RESP 12–18; TEMP 97.4–97.5; O2SAT 92–100
[2023-06-15] MEDS ORDERED: mag hydrox/Alum hydrox/simeth 30ml oral suspension PO ONE (01:10)
[2023-06-15] MEDS ORDERED: famotidine/PF 10 mg/ml inj IV ONE (01:10)
[2023-06-15] MEDS ORDERED: iohexol 350MG/ML 100ml bottle IV ONE ×2 (01:17→16:44)
[2023-06-15] MEDS ORDERED: sucralfate 1 gm tablet PO ONE (01:25)
[2023-06-15 01:44] LABS: FREE T4 (FREE THYROXINE) 0.97 NG/DL (0.73-1.40); THYROID STIMULATING HORMONE 0.75 ulU/ml (0.34-4.50)
[2023-06-15] MEDS ORDERED: diphenhydrAMINE 50 mg/ml inj IV PRN (05:15)
[2023-06-15] MEDS ORDERED: mag hydrox/Alum hydrox/simeth 30ml oral suspension PO PRN (05:15)
[2023-06-15] MEDS ORDERED: diphenhydrAMINE 25mg capsule PO PRN (05:15)
[2023-06-15] MEDS ORDERED: ondansetron/PF 4mg/2ml inj IV PRN (05:15)
[2023-06-15] MEDS ORDERED: acetaminophen 325mg tablet PO PRN ×2 (05:15)
[2023-06-15] MEDS ORDERED: bisacodyl 10mg suppository rectal RC PRN (05:15)
[2023-06-15] MEDS ORDERED: magnesium hydroxide 30ml (MOM) UD suspension PO PRN (05:15)
[2023-06-15] MEDS ORDERED: ondansetron 4mg rapidly disintigrating tab PO PRN (05:15)
[2023-06-15] MEDS ORDERED: acetaminophen 650mg rectal suppository RC PRN (05:15)
[2023-06-15] MEDS: normal saline 1000ml 1,000 ML IV SCH ×3 (05:39→20:01)
[2023-06-15] MEDS: morphine 2 MG/ML inj. syringe IV PRN ×3 (05:46→20:12)
[2023-06-15] MEDS: pantoprazole 40 MG vial IV SCH (07:04)
[2023-06-15] MEDS: docusate sod 100mg capsule PO SCH ×3 (07:05→19:53)
[2023-06-15] MEDS ORDERED: heparin, porcine 5000 units/ml vial SQ SCH (08:00)
[2023-06-15 08:52] LABS: APTT 27 SECONDS (22-32); PROTHROMBIN TIME 10.6 SECONDS (9.0-12.0)
[2023-06-15 08:59] LABS: MAGNESIUM 1.8 MG/DL (1.5-2.4); PHOSPHORUS 2.5 MG/DL (2.3-4.5)
[2023-06-15] MEDS ORDERED: clonazePAM 1mg tablet PO ONE ×2 (09:05→20:35)
[2023-06-15] MEDS: HYDROcodone/acetaminophen 5mg/325mg tablet PO PRN (10:18)
[2023-06-15] MEDS: ipratropium/albuterol 3ml nebule NEB SCH ×4 (11:43→23:35)
[2023-06-15] MEDS ORDERED: nitroGLYCERIN 0.4mg SUBLingual tab SL PRN (15:15)
[2023-06-15] MEDS ORDERED: heparin 10,000 units/1 ML INJ IV ONE (15:20)
[2023-06-15] MEDS ORDERED: heparin 10,000 units/1 ML INJ IV PRN (15:20)
[2023-06-15] MEDS ORDERED: heparin 25,000 UNIT/250ml bag 250 ML IV PRN (15:20)
[2023-06-15] MEDS: atorvastatin 20mg tablet PO SCH (15:56)
[2023-06-15] MEDS ORDERED: fentaNYL/PF 50MCG/1 ML 2ML syringe ONE (16:44)
[2023-06-15] MEDS ORDERED: midazolam 1 mg/ML 2ml injection ONE (16:44)
[2023-06-15] MEDS ORDERED: iohexol 350 MG/ML 50ML vial IV ONE (16:44)
[2023-06-15] MEDS ORDERED: LIDOcaine 1% (10mg/ml)w/preservative inj. 20ml MDV ONE (16:51)
[2023-06-15 18:04] LABS: BASOPHILS # (AUTO) 0.1 X10'3 (0-0.2); EOSINOPHILS # (AUTO) 0.1 X10'3 (0-0.9); EOSINOPHILS % (AUTO) 0.6 % (0-6); HEMATOCRIT 38.6 % (35.0-45.0); HEMOGLOBIN 12.8 g/dl (12.0-16.0); LYMPHOCYTES # (AUTO) 1.9 X10'3 (1.1-4.8); LYMPHOCYTES % (AUTO) 15.9 % (21-51); MEAN CORPUSCULAR HGB CONC 33.2 g/dL (33.0-36.5); MEAN CORPUSCULAR VOLUME 105.2 FL (78-98); MEAN PLATELET VOLUME 7.3 FL (7.4-10.4); MONOCYTES % (AUTO) 8.2 % (2-12); NEUTROPHILS # (AUTO) 8.8 X10'3 (1.8-7.7); NEUTROPHILS % (AUTO) 74.3 % (42-75); PLATELET COUNT 474 X10'3 (140-440); RED BLOOD COUNT 3.67 X10'6 (4.20-5.60); RED CELL DISTRIBUTION WIDTH 15.5 % (11.5-14.5); WHITE BLOOD COUNT 11.9 X10'3 (4.5-11.0)
[2023-06-15 18:12] LABS: CREATININE 0.79 MG/DL (0.40-0.90); POTASSIUM 4.1 MMOL/L (3.5-5.1); eCRCL 62 ML/MIN; eGFR 74 ML/MIN
[2023-06-15 18:25] LABS: INR 1.1 INR; PROTHROMBIN TIME 11.4 SECONDS (9.0-12.0)
[2023-06-15 18:39] LABS: APTT > 139 SECONDS (22-32)
[2023-06-15] MEDS: losartan 25mg tablet PO SCH (19:36)
[2023-06-15] MEDS ORDERED: carvedilol 6.25mg tablet PO SCH ×2 (20:00)
[2023-06-15] MEDS ORDERED: temazepam 15mg capsule PO PRN (21:00)
[2023-06-16] VITALS (10 sets, daily range): BP systolic 81–91; BP diastolic 49–54; PULSE 58–84; RESP 14–18; TEMP 97.4–97.6; O2SAT 87–98
[2023-06-16] MEDS: ipratropium/albuterol 3ml nebule NEB SCH ×2 (03:02→07:21)
[2023-06-16 07:22] LABS: BASOPHILS # (AUTO) 0.1 X10'3 (0-0.2); BASOPHILS % (AUTO) 1.3 % (0-1); EOSINOPHILS # (AUTO) 0.1 X10'3 (0-0.9); EOSINOPHILS % (AUTO) 1.6 % (0-6); HEMATOCRIT 38.7 % (35.0-45.0); HEMOGLOBIN 12.9 g/dl (12.0-16.0); LYMPHOCYTES # (AUTO) 1.7 X10'3 (1.1-4.8); LYMPHOCYTES % (AUTO) 19.2 % (21-51); MEAN CORPUSCULAR HEMOGLOBIN 35.8 PG (27.0-31.0); MEAN CORPUSCULAR HGB CONC 33.5 g/dL (33.0-36.5); MEAN CORPUSCULAR VOLUME 106.9 FL (78-98); MEAN PLATELET VOLUME 7.5 FL (7.4-10.4); MONOCYTES # (AUTO) 0.6 X10'3 (0-0.9); MONOCYTES % (AUTO) 6.6 % (2-12); NEUTROPHILS # (AUTO) 6.4 X10'3 (1.8-7.7); NEUTROPHILS % (AUTO) 71.3 % (42-75); PLATELET COUNT 342 X10'3 (140-440); RED BLOOD COUNT 3.62 X10'6 (4.20-5.60); RED CELL DISTRIBUTION WIDTH 15.3 % (11.5-14.5)
[2023-06-16 07:59] LABS: ALANINE AMINOTRANSFERASE 34 U/L (12-78); ALBUMIN 2.7 G/DL (3.4-5.0); ALBUMIN/GLOBULIN RATIO 0.9 (1.1-1.5); ALKALINE PHOSPHATASE 75 IU/L (46-116); ANION GAP 5 (8-16); ASPARTATE AMINO TRANSFERASE 34 U/L (10-37); BILIRUBIN,TOTAL 1.2 MG/DL (0.1-1.0); BLOOD UREA NITROGEN 14 MG/DL (7-18); BUN/CREATININE RATIO 19.4 (10.0-20.0); CALCIUM 8.6 MG/DL (8.5-10.1); CHLORIDE 102 MMOL/L (99-107); CREATININE 0.72 MG/DL (0.40-0.90); GLUCOSE 102 MG/DL (70-104); POTASSIUM 3.8 MMOL/L (3.5-5.1); SODIUM 136 MMOL/L (135-145); TOTAL PROTEIN 5.8 G/DL (6.4-8.2); eCRCL 62 ML/MIN; eGFR 82 ML/MIN
[2023-06-16] MEDS: losartan 25mg tablet PO SCH (08:00)
[2023-06-16] MEDS: docusate sod 100mg capsule PO SCH (08:06)
[2023-06-16] MEDS: atorvastatin 20mg tablet PO SCH (08:06)
[2023-06-16] MEDS: pantoprazole 40 MG vial IV SCH (08:06)
[2023-06-16] MEDS: HYDROcodone/acetaminophen 5mg/325mg tablet PO PRN (08:08)
[2023-06-16] MEDS ORDERED: ringers solution, lacted 1,000 ML IV SCH (08:15)
[2023-06-16] MEDS ORDERED: spironolactone 25 MG tablet PO SCH (08:30)
[2023-06-16] MEDS: normal saline 1000ml 1,000 ML IV SCH (10:35)
[2023-06-16] MEDS ORDERED: HYDROcodone/acetaminophen 5mg/325mg tablet PO PRN (12:20)
[2023-06-16 13:05] LABS: LIPASE 138 U/L (16-77)
[2023-06-16] MEDS ORDERED: ipratropium/albuterol 3ml nebule NEB PRN (15:20)
[2023-06-16] MEDS ORDERED: carvedilol 6.25mg tablet PO SCH (20:00)
[2023-06-17] MEDS ORDERED: pantoprazole 40mg Tablet.DR PO SCH (07:30)
[2023-06-17] MEDS ORDERED: non-formulary drug (Pantoprazole Sodium (Protonix) 40 MG) PO SCH (08:00)
[2023-06-17] MEDS ORDERED: sertraline 25mg tablet PO SCH (08:00)
== END 2023-06-16 16:27 | disposition home or self-care (01) | DRG 282 ==
LOC: ER 22:10 → ED HOLD 06-15 05:18 → PCU 3S 06-15 19:40
PROVIDERS: ADMIT Family Medicine; ATTEND Family Medicine
PROC: B32T1ZZ Computerized Tomography (CT Scan) of Left Pulmonary Artery using Low Osmolar Contrast (ICD-10-PCS; principal; 2023-06-15)
PROC: B3201ZZ Computerized Tomography (CT Scan) of Thoracic Aorta using Low Osmolar Contrast (ICD-10-PCS; 2023-06-15)
PROC: B32S1ZZ Computerized Tomography (CT Scan) of Right Pulmonary Artery using Low Osmolar Contrast (ICD-10-PCS; 2023-06-15)
DX: K85.90 Acute pancreatitis without necrosis or infection, unspecified (principal); I50.23 Acute on chronic systolic (congestive) heart failure; E46 Unspecified protein-calorie malnutrition; K86.1 Other chronic pancreatitis; J44.1 Chronic obstructive pulmonary disease with (acute) exacerbation; I11.0 Hypertensive heart disease with heart failure; E87.1 Hypo-osmolality and hyponatremia; K21.9 Gastro-esophageal reflux disease without esophagitis; I24.9 Acute ischemic heart disease, unspecified; Z96.641 Presence of right artificial hip joint; I73.9 Peripheral vascular disease, unspecified; F10.21 Alcohol dependence, in remission; R07.89 Other chest pain; F41.0 Panic disorder [episodic paroxysmal anxiety]; F17.210 Nicotine dependence, cigarettes, uncomplicated; F32.A Depression, unspecified; M48.56XA Collapsed vertebra, not elsewhere classified, lumbar region, initial encounter for fracture; M48.54XA Collapsed vertebra, not elsewhere classified, thoracic region, initial encounter for fracture; I25.10 Atherosclerotic heart disease of native coronary artery without angina pectoris; I25.2 Old myocardial infarction; Z68.1 Body mass index [BMI] 19.9 or less, adult; Z90.710 Acquired absence of both cervix and uterus; Z88.0 Allergy status to penicillin; Z88.6 Allergy status to analgesic agent; Z79.899 Other long term (current) drug therapy; Z59.00 Homelessness unspecified; Z56.0 Unemployment, unspecified; Z71.6 Tobacco abuse counseling; Z91.199 Patient's noncompliance with other medical treatment and regimen due to unspecified reason
CPT/HCPCS: 36415; 71045; 71275; 74177; 80053; 82565; 83036; 83690; 83735; 83880; 84100; 84132; 84439; 84443; 84484; 85025; 85610; 85730; 87081; 94640; 94760; 99285; A6258; C9113; J1644; J2250; J2270; J2405; J3010; J3490; J7030; J7120; Q9967

== ENCOUNTER 2023-06-28 13:34 | Inpatient (IN) | payer MEDICAID ==
[~2023-06-28] VITALS: Ht 167.6 cm; Wt 53.0 kg
[~2023-06-28 13:34] MED LIST changes: -CLON-527 PO; -FURO-150 PO; -OMEP-84 PO; -POTA-206 PO
[2023-06-28 13:56] VITALS: TEMP 97.9
[2023-06-28] MEDS ORDERED: ondansetron/PF 4mg/2ml inj IV ONE (15:10)
[2023-06-28] MEDS ORDERED: morphine 4 MG/ML inj SYRINge IV ONE (15:10)
[2023-06-28 16:09] LABS: BASOPHILS # (AUTO) 0.1 X10'3 (0-0.2); BASOPHILS % (AUTO) 0.8 % (0-1); EOSINOPHILS # (AUTO) 0.1 X10'3 (0-0.9); EOSINOPHILS % (AUTO) 0.9 % (0-6); HEMATOCRIT 40.5 % (35.0-45.0); HEMOGLOBIN 13.9 g/dl (12.0-16.0); LYMPHOCYTES # (AUTO) 1.9 X10'3 (1.1-4.8); LYMPHOCYTES % (AUTO) 18.9 % (21-51); MEAN CORPUSCULAR HEMOGLOBIN 35.3 PG (27.0-31.0); MEAN CORPUSCULAR HGB CONC 34.3 g/dL (33.0-36.5); MEAN CORPUSCULAR VOLUME 102.8 FL (78-98); MEAN PLATELET VOLUME 7.3 FL (7.4-10.4); MONOCYTES # (AUTO) 0.5 X10'3 (0-0.9); MONOCYTES % (AUTO) 5.5 % (2-12); NEUTROPHILS # (AUTO) 7.3 X10'3 (1.8-7.7); NEUTROPHILS % (AUTO) 73.9 % (42-75); PLATELET COUNT 334 X10'3 (140-440); RED BLOOD COUNT 3.94 X10'6 (4.20-5.60); RED CELL DISTRIBUTION WIDTH 15.1 % (11.5-14.5); WHITE BLOOD COUNT 9.9 X10'3 (4.5-11.0)
[2023-06-28 16:29] LABS: ALANINE AMINOTRANSFERASE 53 U/L (12-78); ALBUMIN 3.9 G/DL (3.4-5.0); ALKALINE PHOSPHATASE 81 IU/L (46-116); ANION GAP 9 (8-16); ASPARTATE AMINO TRANSFERASE 42 U/L (10-37); BILIRUBIN,TOTAL 0.9 MG/DL (0.1-1.0); BLOOD UREA NITROGEN 14 MG/DL (7-18); BUN/CREATININE RATIO 18.9 (10.0-20.0); CALCIUM 9.2 MG/DL (8.5-10.1); CHLORIDE 89 MMOL/L (99-107); CREATININE 0.74 MG/DL (0.40-0.90); GLUCOSE 84 MG/DL (70-104); POTASSIUM 3.6 MMOL/L (3.5-5.1); SODIUM 128 MMOL/L (135-145); TOTAL PROTEIN 7.7 G/DL (6.4-8.2); eCRCL 67 ML/MIN; eGFR 80 ML/MIN
[2023-06-28 16:37] LABS: MAGNESIUM 1.7 MG/DL (1.5-2.4); PRO BRAIN NATRIURETIC PEPTIDE 1826 PG/ML (0-125)
[2023-06-28] MEDS ORDERED: CLON-527 PO (20:05)
[2023-06-28] MEDS ORDERED: clonazePAM 1mg tablet PO PRN (21:35)
[2023-06-29] MEDS ORDERED: ondansetron/PF 4mg/2ml inj IV PRN (05:05)
[2023-06-29] MEDS ORDERED: acetaminophen 325mg tablet PO PRN (05:05)
[2023-06-29] MEDS ORDERED: heparin, porcine 5000 units/ml vial SQ SCH (08:00)
[2023-06-29] MEDS ORDERED: ACET-1008 PO (12:34)
[2023-06-29] MEDS ORDERED: PRED10TA23 PO (12:34)
[2023-06-29] MEDS ORDERED: LISI5TAB22 PO (12:34)
[2023-06-29] MEDS ORDERED: CARV3.12 PO (12:34)
[2023-06-29] MEDS ORDERED: CLOP-32 PO (12:34)
[2023-06-29 13:37] VITALS: BP 104/61; PULSE 116; RESP 26; O2SAT 95
== END 2023-06-29 13:25 | disposition home or self-care (01) | DRG 207 ==
LOC: ER 13:34 → ED HOLD 17:05
PROVIDERS: ADMIT Internal Medicine; ATTEND Internal Medicine
DX: I51.81 Takotsubo syndrome (principal); J44.1 Chronic obstructive pulmonary disease with (acute) exacerbation; K21.9 Gastro-esophageal reflux disease without esophagitis; I10 Essential (primary) hypertension; K86.1 Other chronic pancreatitis; Z72.0 Tobacco use; Z90.710 Acquired absence of both cervix and uterus; Z88.0 Allergy status to penicillin; Z79.899 Other long term (current) drug therapy; Z88.6 Allergy status to analgesic agent; Z59.00 Homelessness unspecified
CPT/HCPCS: 36415; 71045; 80053; 83735; 83880; 84484; 85025; 99285; G0378; J1644; J2270; J2405; J7030

== ENCOUNTER 2023-07-06 15:05 | Emergency (ER) | payer MEDICAID ==
[~2023-07-06] VITALS: Ht 167.6 cm; Wt 41.0 kg
[~2023-07-06 15:05] MED LIST changes: +ACET-1008 PO; +CLON-527 PO; +CLOP-32 PO; -LISI2.5T14 PO; +LISI5TAB22 PO; -PANT40SU2 PO; +PRED10TA23 PO
[2023-07-06 17:28] LABS: BASOPHILS # (AUTO) 0.1 X10'3 (0-0.2); BASOPHILS % (AUTO) 0.7 % (0-1); EOSINOPHILS % (AUTO) 0.5 % (0-6); HEMATOCRIT 38.3 % (35.0-45.0); HEMOGLOBIN 12.8 g/dl (12.0-16.0); LYMPHOCYTES # (AUTO) 1.4 X10'3 (1.1-4.8); LYMPHOCYTES % (AUTO) 15.2 % (21-51); MEAN CORPUSCULAR HEMOGLOBIN 34.8 PG (27.0-31.0); MEAN CORPUSCULAR HGB CONC 33.4 g/dL (33.0-36.5); MEAN CORPUSCULAR VOLUME 104.3 FL (78-98); MEAN PLATELET VOLUME 7.5 FL (7.4-10.4); MONOCYTES # (AUTO) 0.7 X10'3 (0-0.9); MONOCYTES % (AUTO) 7.6 % (2-12); NEUTROPHILS # (AUTO) 7.2 X10'3 (1.8-7.7); PLATELET COUNT 382 X10'3 (140-440); RED BLOOD COUNT 3.67 X10'6 (4.20-5.60); RED CELL DISTRIBUTION WIDTH 15.8 % (11.5-14.5); WHITE BLOOD COUNT 9.5 X10'3 (4.5-11.0)
[2023-07-06 17:49] LABS: ALANINE AMINOTRANSFERASE 63 U/L (12-78); ALBUMIN 3.5 G/DL (3.4-5.0); ALBUMIN/GLOBULIN RATIO 0.9 (1.1-1.5); ALKALINE PHOSPHATASE 65 IU/L (46-116); ANION GAP 11 (8-16); ASPARTATE AMINO TRANSFERASE 22 U/L (10-37); BILIRUBIN,TOTAL 0.2 MG/DL (0.1-1.0); BLOOD UREA NITROGEN 11 MG/DL (7-18); BUN/CREATININE RATIO 14.7 (10.0-20.0); CALCIUM 9.2 MG/DL (8.5-10.1); CHLORIDE 95 MMOL/L (99-107); CREATININE 0.75 MG/DL (0.40-0.90); GLUCOSE 105 MG/DL (70-104); POTASSIUM 3.2 MMOL/L (3.5-5.1); SODIUM 130 MMOL/L (135-145); TOTAL CARBON DIOXIDE 24.1 MMOL/L (24-32); TOTAL PROTEIN 7.3 G/DL (6.4-8.2); eCRCL 51 ML/MIN; eGFR 79 ML/MIN
[2023-07-06 17:58] LABS: ETHANOL 209 MG/DL (<10); PRO BRAIN NATRIURETIC PEPTIDE 5118 PG/ML (0-125)
[2023-07-06 18:36] VITALS: BP 87/53; PULSE 55; RESP 20; TEMP 97.4; O2SAT 100
== END 2023-07-06 20:10 | disposition left against medical advice (07) ==
LOC: ER 15:06
DX: R07.9 Chest pain, unspecified (principal); Z53.21 Procedure and treatment not carried out due to patient leaving prior to being seen by health care provider
CPT/HCPCS: 36415; 71045; 80053; 80320; 83880; 84484; 85025; 93005; 99281

== ENCOUNTER 2023-08-29 09:13 | Emergency (ER) | payer MEDICAID ==
[~2023-08-29] VITALS: Ht 167.6 cm; Wt 50.0 kg
[~2023-08-29 09:13] MED LIST changes: -ACET-1008 PO; -PRED10TA23 PO
[2023-08-29 09:16] VITALS: TEMP 98
[2023-08-29 12:17] LABS: BASOPHILS # (AUTO) 0.1 X10'3 (0-0.2); BASOPHILS % (AUTO) 0.9 % (0-1); EOSINOPHILS # (AUTO) 0.1 X10'3 (0-0.9); EOSINOPHILS % (AUTO) 1.2 % (0-6); HEMATOCRIT 41.1 % (35.0-45.0); HEMOGLOBIN 13.6 g/dl (12.0-16.0); LYMPHOCYTES # (AUTO) 2.1 X10'3 (1.1-4.8); LYMPHOCYTES % (AUTO) 23.9 % (21-51); MEAN CORPUSCULAR HEMOGLOBIN 33.5 PG (27.0-31.0); MEAN CORPUSCULAR HGB CONC 33.1 g/dL (33.0-36.5); MEAN CORPUSCULAR VOLUME 101.3 FL (78-98); MEAN PLATELET VOLUME 8.1 FL (7.4-10.4); MONOCYTES # (AUTO) 0.3 X10'3 (0-0.9); MONOCYTES % (AUTO) 3.1 % (2-12); NEUTROPHILS # (AUTO) 6.1 X10'3 (1.8-7.7); NEUTROPHILS % (AUTO) 70.9 % (42-75); PLATELET COUNT 355 X10'3 (140-440); RED BLOOD COUNT 4.05 X10'6 (4.20-5.60); RED CELL DISTRIBUTION WIDTH 14.8 % (11.5-14.5); WHITE BLOOD COUNT 8.7 X10'3 (4.5-11.0)
[2023-08-29 12:47] LABS: ALANINE AMINOTRANSFERASE 57 U/L (12-78); ALBUMIN 3.9 G/DL (3.4-5.0); ALBUMIN/GLOBULIN RATIO 1.1 (1.1-1.5); ALKALINE PHOSPHATASE 96 IU/L (46-116); ANION GAP 12 (8-16); ASPARTATE AMINO TRANSFERASE 19 U/L (10-37); BILIRUBIN,TOTAL 0.2 MG/DL (0.1-1.0); BLOOD UREA NITROGEN 16 MG/DL (7-18); BUN/CREATININE RATIO 23.5 (10.0-20.0); CALCIUM 9.1 MG/DL (8.5-10.1); CHLORIDE 111 MMOL/L (99-107); CREATININE 0.68 MG/DL (0.40-0.90); GLUCOSE 96 MG/DL (70-104); POTASSIUM 4.4 MMOL/L (3.5-5.1); SODIUM 148 MMOL/L (135-145); TOTAL CARBON DIOXIDE 25.1 MMOL/L (24-32); TOTAL PROTEIN 7.5 G/DL (6.4-8.2); eCRCL 69 ML/MIN; eGFR 88 ML/MIN
[2023-08-29 12:53] LABS: PRO BRAIN NATRIURETIC PEPTIDE 147 PG/ML (0-125)
[2023-08-29] MEDS: ondansetron/PF 4mg/2ml inj IV ONE (13:04)
[2023-08-29] MEDS: acetaminophen 1,000mg/100ml IV 100 ML IV SCH (13:17)
[2023-08-29] MEDS: pantoprazole 40 MG vial IV STA (13:19)
[2023-08-29 13:33] VITALS: BP 108/64; PULSE 88; RESP 18; O2SAT 95
== END 2023-08-29 14:42 | disposition home or self-care (01) ==
LOC: ER 09:14
DX: R11.0 Nausea (principal); I11.0 Hypertensive heart disease with heart failure; I50.9 Heart failure, unspecified; J44.9 Chronic obstructive pulmonary disease, unspecified; K21.9 Gastro-esophageal reflux disease without esophagitis; Z88.0 Allergy status to penicillin; Z88.6 Allergy status to analgesic agent; Z79.899 Other long term (current) drug therapy; Z90.710 Acquired absence of both cervix and uterus
CPT/HCPCS: 36415; 71045; 80053; 83735; 83880; 84484; 85025; 93005; 96374; 96375; 99285; C9113; J0131; J2405

== ENCOUNTER 2023-09-01 11:27 | Emergency (ER) | payer MEDICAID ==
[~2023-09-01] VITALS: Ht 167.6 cm; Wt 50.0 kg
[2023-09-01 11:41] VITALS: TEMP 98
[2023-09-01] MEDS: haloperidol lactate 5mg/ml inj IM ONE (13:09)
[2023-09-01] MEDS: diphenhydrAMINE 50 mg/ml inj IM ONE (13:10)
[2023-09-01 14:56] LABS: BASOPHILS # (AUTO) 0.1 X10'3 (0-0.2); BASOPHILS % (AUTO) 0.7 % (0-1); EOSINOPHILS % (AUTO) 0.3 % (0-6); HEMATOCRIT 36.4 % (35.0-45.0); HEMOGLOBIN 12.1 g/dl (12.0-16.0); LYMPHOCYTES # (AUTO) 1.7 X10'3 (1.1-4.8); LYMPHOCYTES % (AUTO) 19.1 % (21-51); MEAN CORPUSCULAR HEMOGLOBIN 33.1 PG (27.0-31.0); MEAN CORPUSCULAR HGB CONC 33.4 g/dL (33.0-36.5); MEAN CORPUSCULAR VOLUME 99.3 FL (78-98); MONOCYTES # (AUTO) 0.3 X10'3 (0-0.9); MONOCYTES % (AUTO) 3.2 % (2-12); NEUTROPHILS # (AUTO) 6.6 X10'3 (1.8-7.7); NEUTROPHILS % (AUTO) 76.7 % (42-75); PLATELET COUNT 384 X10'3 (140-440); RED BLOOD COUNT 3.66 X10'6 (4.20-5.60); RED CELL DISTRIBUTION WIDTH 14.7 % (11.5-14.5); WHITE BLOOD COUNT 8.7 X10'3 (4.5-11.0)
[2023-09-01 15:02] VITALS: BP 193/164; PULSE 109; RESP 20; O2SAT 97
[2023-09-01 15:23] LABS: ANION GAP 16 (8-16); BLOOD UREA NITROGEN 9 MG/DL (7-18); BUN/CREATININE RATIO 13.8 (10.0-20.0); CALCIUM 8.7 MG/DL (8.5-10.1); CHLORIDE 103 MMOL/L (99-107); CREATININE 0.65 MG/DL (0.40-0.90); ETHANOL 242 MG/DL (<10); GLUCOSE 97 MG/DL (70-104); LIPASE 32 U/L (16-77); PRO BRAIN NATRIURETIC PEPTIDE 95 PG/ML (0-125); SALICYLATE 3.9 MG/DL (4.0-20.0); SODIUM 140 MMOL/L (135-145); TOTAL CARBON DIOXIDE 20.7 MMOL/L (24-32); eCRCL 72 ML/MIN; eGFR > 90 ML/MIN
[2023-09-01 15:31] LABS: ACETAMINOPHEN < 2.0 UG/ML (10-30)
== END 2023-09-01 16:04 | disposition left against medical advice (07) ==
LOC: ER 11:28
DX: F10.129 Alcohol abuse with intoxication, unspecified (principal); I11.0 Hypertensive heart disease with heart failure; I50.9 Heart failure, unspecified; J44.9 Chronic obstructive pulmonary disease, unspecified; K21.9 Gastro-esophageal reflux disease without esophagitis; Z88.0 Allergy status to penicillin; Z88.6 Allergy status to analgesic agent; Z79.899 Other long term (current) drug therapy; Z90.710 Acquired absence of both cervix and uterus; Y90.9 Presence of alcohol in blood, level not specified
CPT/HCPCS: 36415; 71045; 80048; 80320; 80329; 83690; 83880; 84484; 85025; 93005; 96372; 99285; J1200; J1630; A4615